=== PATIENT | male | born 1955 | race Caucasian/White ===

== ENCOUNTER 2021-10-21 16:37 | Emergency (ER) | payer BC ==
[2021-10-21] MEDS ORDERED: Ondansetron 4 MG/2 ML SDV ONE (16:47)
[2021-10-21] MEDS ORDERED: Meclizine 25 MG Tab PO ONE (16:59)
[2021-10-21] MEDS ORDERED: Dextrose 5%-0.9% NaCl 1,000 ML IV SCH (17:00)
[2021-10-21] MEDS ORDERED: Ondansetron 4 MG/2 ML SDV IVPUSH ONE (17:02)
[2021-10-21] MEDS ORDERED: Iopamidol 755 MG/ML 500 ML Multipack Bottle IVPUSH STA (17:23)
[2021-10-21 17:28] LABS: BLOOD UREA NITROGEN,BUN 20 mg/dL (7.0-18.0); CARBON DIOXIDE,CO2 26.6 mmol/L (21.0-32.0); CHLORIDE,CL 102 mmol/L (98-107); GLUCOSE RANDOM 97 mg/dL (74-106); POTASSIUM,K 4.2 mmol/L (3.5-5.1); SODIUM,NA 138 mmol/L (136-148)
[2021-10-21] MEDS ORDERED: predniSONE 20 MG Tab PO ONE (18:50)
[2021-10-21 20:24] VITALS: BP 111/64; PULSE 65
== END 2021-10-21 20:24 | disposition home or self-care (01) ==
LOC: MW.ED 16:37
DX: R42 Dizziness and giddiness (principal); Z91.018 Allergy to other foods; Z20.822 Contact with and (suspected) exposure to COVID-19
CPT/HCPCS: 36415; 70450; 70496; 70498; 80053; 84443; 84484; 85025; 85610; 87635; 93005; 96361; 96374; 99284; A9270; J2405; J7042; Q9967; U0002

== ENCOUNTER 2024-07-01 06:45 | Day surgery (SDC) | payer BC ==
[~2024-07-01 06:45] MED LIST: Acetaminophen 1,000 MG in Premix Bag 1 BAG IV SCH; ceFAZolin 2 GM in Sodium Chloride 0.9% 50 ML IV ONE
[2024-07-01] MEDS: Pregabalin 75 MG Cap PO SCH (07:10)
[2024-07-01] MEDS: Lactated Ringers 1,000 ML IV SCH (07:15)
[2024-07-01] MEDS ORDERED: Bupivacaine 0.5% 30 ML SDV ONE (07:17)
[2024-07-01] MEDS ORDERED: Lidocaine 2% 11 ML Jelly Filled Syringe ONE (07:35)
[2024-07-01] MEDS ORDERED: Rocuronium 100 MG/10 ML MDV ONE (07:36)
[2024-07-01] MEDS ORDERED: Ropivacaine 0.5% 5 MG/ML 30 ML SDV ONE (07:36)
[2024-07-01] MEDS ORDERED: fentaNYL 250 MCG/5 ML SDV ONE (07:36)
[2024-07-01] MEDS ORDERED: Famotidine 20 MG/2 ML SDV ONE (07:36)
[2024-07-01] MEDS ORDERED: Propofol 200 MG/20 ML SDV ONE (07:36)
[2024-07-01] MEDS ORDERED: Morphine 10 MG/ML SDV ONE (07:37)
[2024-07-01] MEDS ORDERED: Sodium Chloride 0.9% 20 ML ONE ×2 (07:37→07:38)
[2024-07-01] MEDS ORDERED: dexmedeTOMIDine HCl 200 MCG/2 ML SDV ONE (07:38)
[2024-07-01] MEDS ORDERED: Ketamine HCL/NACL, ISO-OSM 50 MG/5 ML Syringe ONE (08:02)
[2024-07-01] MEDS ORDERED: ceFAZolin 2 GM Vial ONE (08:04)
[2024-07-01] MEDS ORDERED: ePHEDrine 50 MG/ML SDV ONE (08:07)
[2024-07-01] MEDS ORDERED: fentaNYL 100 MCG/2 ML SDV ONE (08:27)
[2024-07-01] MEDS ORDERED: Sugammadex Sodium 200 MG/2 ML VIAL IV ONE (09:08)
[2024-07-01] MEDS ORDERED: Ondansetron 4 MG/2 ML SDV ONE (09:10)
[2024-07-01] MEDS ORDERED: Dexamethasone 4 MG/ML 5 ML MDV ONE (09:10)
[2024-07-01] MEDS ORDERED: Naloxone 0.4 MG/ML SDV IVPUSH PRN (10:05)
[2024-07-01] MEDS ORDERED: Ondansetron 4 MG/2 ML SDV IVPUSH PRN (10:05)
[2024-07-01] MEDS ORDERED: Albuterol 0.083% 2.5 MG/3 ML Neb Soln NEB PRN (10:05)
[2024-07-01] MEDS ORDERED: HYDROmorphone 1 MG/ML Syringe IVPUSH PRN (10:05)
[2024-07-01] MEDS ORDERED: Phenylephrine HCl In 0.9% NaCl 1 MG/10 ML Syringe IVPUSH PRN (10:05)
[2024-07-01] MEDS ORDERED: Metoclopramide 10 MG/2 ML SDV IVPUSH PRN (10:05)
[2024-07-01] MEDS ORDERED: fentaNYL 50 MCG/ML SDV IVPUSH PRN (10:05)
[2024-07-01] MEDS ORDERED: Morphine 2 MG/ML SYRINGE IVPUSH PRN (10:05)
[2024-07-01 13:51] VITALS: PULSE 58
[2024-07-01 13:52] VITALS: BP 137/98
== END 2024-07-01 11:43 | disposition home or self-care (01) ==
LOC: MW.SDS 06:45
PROVIDERS: ATTEND Surgery
DX: K40.90 Unilateral inguinal hernia, without obstruction or gangrene, not specified as recurrent (principal); I10 Essential (primary) hypertension; J45.909 Unspecified asthma, uncomplicated
CPT/HCPCS: 49650; 64488; A9270; C1781; J0131; J0665; J0690; J1100; J2272; J2704; J2795; J3010; J7120; 00830; 64486; J2405; J3490